=== PATIENT | male | born 1955 | race Caucasian/White ===

== ENCOUNTER 2024-08-09 11:49 | Emergency (ER) | payer MEDICARE, BC ==
[2024-08-09 12:25] LABS: Actual Bicarbonate (HCO3v) 23.2 mEq/L (22-28); Analyzer IN Cardio CS ER; Base Excess -5.9 mEq/L (-2 - +2); Calcium, Ionized (venous) 1.15 mmol/L (1.16-1.32); Chloride (VBG) 96 mmol/L (98-106); Hematocrit-VBG 47 % (42.0-52.0); Hemoglobin (Hb) 15.9 g/dL (12.6-17.4); Potassium (VBG) 3.77 mmol/L (3.70-5.30); Puncture Site Other Site; RapidComm Collect By MW; Sodium 139 mmol/L (133-146); pH (venous) 7.203 (7.32-7.43)
[2024-08-09 12:38] LABS: INR-International Normal Ratio 1.1; PTT 24.9 sec (22.0-33.0); Prothrombin Time 11.8 sec (9.5-12.1)
[2024-08-09 12:42] LABS: Hematocrit 45.5 % (38.8-50.0); Hemoglobin 14.9 g/dL (13.5-17.5); Mean Corpuscular HGB CONC 32.7 g/dL (32.0-36.0); Mean Corpuscular Hemoglobin 30.7 pg (27.0-33.0); Mean Corpuscular Volume 93.8 fL (81.2-95.1); Mean Platelet Volume 9.6 fL (7.4-10.4); Platelet Count 588 10x3/uL (150-450); RBC Distribution Width 12.8 % (11.5-14.5); Red Blood Cell (RBC) Count 4.85 10x6/uL (4.32-5.72); White Blood Cell (WBC) Count 28.21 10x3/uL (3.5-10.5)
[2024-08-09 12:43] LABS: Phosphorus 4.9 mg/dL (2.5-4.5)
[2024-08-09 12:44] LABS: ALT (SGPT) 96 U/L (Less than 45); AST (SGOT) 107 U/L (11-34); Albumin 3.3 g/dL (3.1-4.5); Alkaline Phosphatase 98 U/L (40-110); Anion Gap 17 mmol/L (10-20); BUN (Urea Nitrogen) 16 mg/dL (8.4-25.7); Bilirubin, Total 0.5 mg/dL (0.3-1.2); Calc. Creatinine Clearance 0 mL/min (70-130); Calcium 8.8 mg/dL (7.8-10.44); Carbon Dioxide 25 mmol/L (23-31); Chloride 99 mmol/L (98-107); Estimated GFR 99; Globulin 3.1 g/dL (2.4-3.5); Glucose 226 mg/dL (80-115); Magnesium 1.9 mg/dL (1.6-2.6); Protein, Total 6.4 g/dL (5.8-8.1); Sodium 137 mmol/L (136-145)
[2024-08-09 12:51] LABS: Troponin I 0.056 ng/mL (< 0.028)
[2024-08-09 13:21] LABS: Band 3 % (5-11); Eosinophils 1 % (0-10); Lymphocytes 38 % (21-51); MDiff Complete? YES; Monocytes 5 % (0-10); Neutrophil 52 % (42-75); Platelet Adequacy Comment Appears Increased; RBC Morphology Within Normal Limits
== END 2024-08-09 16:49 | disposition short-term general hospital (02) ==
LOC: CSHERS 11:49
DX: J90 Pleural effusion, not elsewhere classified (principal); J96.21 Acute and chronic respiratory failure with hypoxia; D72.829 Elevated white blood cell count, unspecified; I10 Essential (primary) hypertension; E11.9 Type 2 diabetes mellitus without complications; I48.91 Unspecified atrial fibrillation; Z87.891 Personal history of nicotine dependence; Z79.899 Other long term (current) drug therapy
CPT/HCPCS: 71045; 80053; 82805; 83615; 83735; 83880; 84100; 84145; 84484; 84550; 85025; 85610; 85730; 87428; 93005; 94660